=== PATIENT | female | born 1950 ===

== ENCOUNTER 2016-07-20 10:05 | Emergency (ER) | payer MEDICARE, MEDICAID ==
[2016-07-20 10:22] VITALS: BMI 21.2
--- NOTE | 2016-07-20 12:03 | C.PDOC ---
History Of Present Illness 66 y/o female presents to ED with complaints of back pain with radiation to abdomen and legs bilaterally. Pain is worse with movement. As per daughter patient fell 2 years and assisted physical therapy but no relief. No other complaints at this time. Time Seen by Provider: 07/20/16 11:17 Chief Complaint (Nursing): Abdominal Pain History Per: Patient, Family (Daughter) Onset/Duration Of Symptoms: Days Current Symptoms Are (Timing): Still Present Quality Of Discomfort: Sharp Associated Symptoms: Back Pain. denies: Fever, Nausea, Vomiting, Diarrhea, Urinary Symptoms Past Medical History Reviewed: Historical Data, Nursing Documentation, Vital Signs Vital Signs: Last Vital Signs Temp 98.5 F 07/20/16 13:59 Pulse 68 07/20/16 13:59 Resp 19 07/20/16 13:59 BP 158/74 H 07/20/16 13:59 Pulse Ox 100 07/20/16 14:14 - Medical History PMH: Anxiety, Arthritis, Asthma, HTN, Hypercholesterolemia Family History: States: Unknown Family Hx - Social History Hx Tobacco Use: No Hx Alcohol Use: No Hx Substance Use: No - Immunization History Hx Tetanus Toxoid Vaccination: No Hx Influenza Vaccination: No Hx Pneumococcal Vaccination: No Review Of Systems Except As Marked, All Systems Reviewed And Found Negative. Constitutional: Negative for: Fever, Chills Cardiovascular: Negative for: Chest Pain Gastrointestinal: Positive for: Abdominal Pain. Negative for: Nausea, Vomiting , Diarrhea Genitourinary: Negative for: Dysuria Musculoskeletal: Positive for: Back Pain Neurological: Negative for: Weakness, Numbness Physical Exam - Physical Exam Appears: Non-toxic, No Acute Distress Skin: Normal Color, Warm, No Rash Head: Atraumatic, Normacephalic Eye(s): bilateral: Normal Inspection Oral Mucosa: Moist Neck: Normal ROM, Supple Chest: Symmetrical, No Tenderness Cardiovascular: Rhythm Regular, No Friction Rub, No Murmur Respiratory: No Rales, No Rhonchi, No Wheezing Gastrointestinal/Abdominal: No Bowel Sounds, Soft, No Tenderness, No Guarding, No Rebound Back: No CVA Tenderness, Other (Diffuse paralumbar Tenderness) Extremity: Normal ROM, No Swelling Neurological/Psych: Oriented x3, Normal Speech, Normal Cognition, Normal Sensation Gait: Steady ED Course And Treatment - Laboratory Results Result Diagrams: 07/20/16 13:11 07/20/16 13:11 O2 Sat by Pulse Oximetry: 100 (RA) Pulse Ox Interpretation: Normal Disposition - Disposition Referrals: [facility] at [facility] [Outside] Bipin Hameed MD [Non-Staff] - Escobar Serrano MD [Staff Provider] - Disposition: HOME/ ROUTINE Disposition Time: 14:12 Condition: GOOD Additional Instructions: Follow up with the medical doctor within 1-2 days without fail. Return if worsened. Prescriptions: diaZEpam [Valium] 5 mg PO TID #21 tab Naproxen [Naprosyn] 500 mg PO BID #20 tab predniSONE [Prednisone] 20 mg PO BID #10 tab Instructions: Lumbar Radiculopathy (ED) - Clinical Impression Clinical Impression: Lumbar radiculopathy - PA / [employer] CROSSCUTTER / Resident Statement MD/DO has reviewed & agrees with the documentation as recorded. - Scribe Statement The provider has reviewed the documentation as recorded by the Scribe Colby Guillermo
[2016-07-20] MEDS ORDERED: Dexamethasone 4 mg/1 ml IVP STA (12:07)
--- NOTE | 2016-07-20 12:08 | C.PDOC ---
Time Seen by Provider: 07/20/16 11:17 Chief Complaint (Nursing): Abdominal Pain Past Medical History Vital Signs: Last Vital Signs Temp 98.0 F 07/20/16 10:23 Pulse 70 07/20/16 10:23 Resp 17 07/20/16 10:23 BP 178/87 H 07/20/16 10:23 Pulse Ox 100 07/20/16 10:23 - Medical History PMH: Anxiety, Arthritis, Asthma, HTN, Hypercholesterolemia Family History: States: Unknown Family Hx - Social History Hx Tobacco Use: No Hx Alcohol Use: No Hx Substance Use: No - Immunization History Hx Tetanus Toxoid Vaccination: No Hx Influenza Vaccination: No Hx Pneumococcal Vaccination: No ED Course And Treatment O2 Sat by Pulse Oximetry: 100
[2016-07-20] MEDS ORDERED: Dexamethasone 4 mg/1 ml ONE (12:57)
[2016-07-20 13:15] LABS: HEMATOCRIT 38.2 % (34.0-47.0); LYMPH # 1.2 K/uL (1.0-4.3); LYMPH % 24.3 % (20.0-40.0); MEAN CORPUSCULAR HEMOGLOBIN 31.3 pg (27.0-31.0); MEAN PLATELET VOLUME 8.9 fL (7.2-11.7); MONO # 0.4 K/uL (0.0-0.8); MONO % 7.9 % (0.0-10.0); NRBC % 0.1 % (0.0-2.0); RED CELL DISTRIBUTION WIDTH 14.1 % (11.5-14.5)
[2016-07-20 13:18] LABS: MEAN CELL VOLUME 94.8 fL (81.0-99.0)
[2016-07-20 13:25] LABS: CHLORIDE 104 mmol/L (98-107); SODIUM 139 mmol/L (132-148)
[2016-07-20 13:26] LABS: POTASSIUM 3.6 mmol/L (3.6-5.2)
[2016-07-20 13:28] LABS: ALB/GLOB RATIO 1.4 (1.0-2.1); ALKALINE PHOSPHATASE 55 U/L (38-126); ALT/SGPT 21 U/L (9-52); AST/SGOT 24 U/L (14-36); BILIRUBIN,TOTAL 0.7 mg/dL (0.2-1.3); BLOOD UREA NITROGEN 14 mg/dL (7-17); CALCIUM 9.6 mg/dl (8.6-10.4); CARBON DIOXIDE 25 mmol/L (22-30); GFR AFRICAN-AMERICAN > 60; GLUCOSE,RANDOM 90 mg/dL (65-105); TOTAL PROTEIN 7.6 g/dL (6.3-8.3)
[2016-07-20 13:31] LABS: RBC URINE 5 /hpf (0-3); URINE BILIRUBIN NEGATIVE (NEGATIVE); URINE BLOOD 2+ (NEGATIVE); URINE COLOR Yellow (YELLOW); URINE GLUCOSE (UA) NORMAL (Normal); URINE KETONE NEGATIVE (NEGATIVE); URINE LEUKOCYTE ESTERASE NEG Leu/uL (Negative); URINE PROTEIN NEGATIVE (NEGATIVE); URINE UROBILINOGEN NORMAL mg/dL (0.2-1.0); WBC URINE 1 /hpf (0-5)
--- NOTE | 2016-07-20 13:44 | CT ---
PROCEDURE: CT Abdomen and Pelvis without Oral or IV contrast. HISTORY: flank pain radiate to lower abd COMPARISON: CT abdomen and pelvis without contrast performed 10/24/15 TECHNIQUE: Contiguous axial images of the abdomen and pelvis. No oral or IV contrast administered. Coronal and Sagittal reformats generated and reviewed. Radiation dose: Total exam DLP = 303.36 mGy-cm. This CT exam was performed using one or more of the following dose reduction techniques: Automated exposure control, adjustment of the mA and/or kV according to patient size, and/or use of iterative reconstruction technique. FINDINGS: There is limited evaluation of the solid organs without the administration of IV contrast. LOWER THORAX: No pleural effusion or pneumothorax. Partially imaged large nodular density containing calcification, left lower lobe. LIVER: Unremarkable unenhanced appearance. GALLBLADDER AND BILE DUCTS: Unremarkable unenhanced appearance. PANCREAS: Unremarkable unenhanced appearance. SPLEEN: Unremarkable unenhanced appearance. ADRENALS: Unremarkable unenhanced appearance. KIDNEYS AND URETERS: No hydronephrosis or obstructing renal calculus. BLADDER: The urinary bladder appears unremarkable. REPRODUCTIVE: The uterus is absent consistent with hysterectomy. APPENDIX: The appendix appears within normal limits of caliber. No secondary signs of acute appendicitis. BOWEL: The stomach is nondistended. Lack of oral contrast limits evaluation for bowel pathology. The bowel loops appear within normal limits of caliber without evidence of intestinal obstruction. Moderate constipation. PERITONEUM: No significant free fluid. No definite free air. LYMPH NODES: No bulky lymphadenopathy identified. Suboptimal evaluation for adenopathy in the absence of oral and IV contrast. VASCULATURE: Sclerotic calcifications. No aortic aneurysm. BONES: Osseous demineralization. Degenerative changes. Scoliosis. OTHER FINDINGS: Stable pelvic calcification, right pelvis (series 3, image 113) IMPRESSION: Limited study. Moderate constipation. Partially imaged large nodular density containing calcification, left lower lobe. Additional findings as above.
[2016-07-20 13:59] VITALS: BP 158/74; PULSE 68; RESP 19; TEMP 98.5
[2016-07-20 14:14] VITALS: O2SAT 100
== END 2016-07-20 14:33 | disposition home or self-care (01) ==
LOC: C.ER 10:05
DX: M54.16 Radiculopathy, lumbar region (principal)
CPT/HCPCS: 74176; 80053; 81001; 83690; 85025; 87086; 96374; 96375; 99285; J1100; J1885; J2270

== ENCOUNTER 2016-10-14 10:23 | Emergency (ER) | payer MEDICARE, MEDICAID ==
[2016-10-14 10:23] VITALS: BMI 21.2
[2016-10-14 10:35] VITALS: RESP 16; TEMP 98.9; O2SAT 97
--- NOTE | 2016-10-14 11:59 | C.PDOC ---
History Of Present Illness 66 year old female presents to the ED with complaints of right foot pain for three weeks. Patient states a piece of wood fell onto her foot and it became bruised and painful. Patient has been ambulatory on foot. She denies fever, bleeding, discharge, sensory changes. Time Seen by Provider: 10/14/16 10:38 Chief Complaint (Nursing): Lower Extremity Problem/Injury History Per: Patient History/Exam Limitations: no limitations Onset/Duration Of Symptoms: Persistent (3 weeks ) Current Symptoms Are (Timing): Still Present Severity: Mild Recent travel outside of the [place]: No - Ankle/Foot Description Of Injury: Struck With Object (piece of wood ) Past Medical History Reviewed: Historical Data, Nursing Documentation, Vital Signs Vital Signs: Last Vital Signs Temp 98.9 F 10/14/16 10:32 Pulse 86 10/14/16 12:04 Resp 16 10/14/16 12:04 BP 169/78 H 10/14/16 12:04 Pulse Ox 97 10/14/16 15:27 - Medical History PMH: Anxiety, Arthritis, Asthma, HTN, Hypercholesterolemia Family History: States: No Known Family Hx - Social History Hx Tobacco Use: No Hx Alcohol Use: No Hx Substance Use: No - Immunization History Hx Tetanus Toxoid Vaccination: No Hx Influenza Vaccination: No Hx Pneumococcal Vaccination: No Review Of Systems Except As Marked, All Systems Reviewed And Found Negative. Constitutional: Negative for: Fever Cardiovascular: Negative for: Chest Pain Respiratory: Negative for: Cough, Shortness of Breath Gastrointestinal: Negative for: Nausea, Vomiting Musculoskeletal: Positive for: Foot Pain (right foot pain ) Skin: Negative for: Rash Neurological: Negative for: Weakness, Numbness Physical Exam - Physical Exam Appears: Well, Non-toxic, In Acute Distress ( in mild pain ) Skin: Warm, Dry Head: Atraumatic, Normacephalic Eye(s): bilateral: Normal Inspection Oral Mucosa: Moist Chest: Deformity Cardiovascular: Rhythm Regular Respiratory: Normal Breath Sounds, No Rales, No Rhonchi, No Wheezing Extremity: Normal ROM (full ROM of digits and and ankles ), No Calf Tenderness, Capillary Refill (< two seconds ), No Deformity, Other (Ecchymosis of the dorsum of the right foot. Small 0.5 cm healing laceration at the top/center of the right foot dorsum, (+) mild swelling, mild TTP, mild ecchymosis) Pulses: Left Dorsalis Pedis: Normal, Right Dorsalis Pedis: Normal Neurological/Psych: Oriented x3, Normal Motor, Normal Sensation Gait: Steady ED Course And Treatment O2 Sat by Pulse Oximetry: 97 (room air ) Pulse Ox Interpretation: Normal - Other Rad Right Foot X-Ray X-Ray: Viewed By Me, Read By Radiologist Interpretation: COMPARISON: None. FINDINGS: BONES: No definite fracture is appreciated. Note, prominent osteopenia is appreciate suggesting probable advanced osteoporosis. Clinically correlate. This complicates the identification of potential nondisplaced fractures. No suspicious lytic or blastic changes seen focally nevertheless. Degenerate changes seen throughout the interphalangeal joints comprised primarily of articular cortical sclerosis and joint space narrowing with similar changes present at the 1st metatarsophalangeal joint primarily and less apparent at the remaining metatarsal phalangeal articulations. Similar degenerate changes are present at the midfoot and hindfoot joints. Vascular calcifications are identified the plantar and posterior foot/ ankle soft tissues. JOINTS: As above. SOFT TISSUES: As above. OTHER FINDINGS: None. IMPRESSION: Diffuse osteopenia suggests osteoporosis with no definite fracture appreciable. No suspicious lytic or blastic change. Please see discussion above. Multifocal mild-to- moderate degenerative osteoarthritis is appreciated throughout the right foot as per above. Progress Note: Patient given PO tylenol. Xray of right foot ordered and reviewed. Reevaluation Time: 12:10 Reassessment Condition: Improved (Patient reassessed, pain has improved and she is able to ambulate normally in ED. Xray (-) for fracture/dislocation, and there is no evidence on physical exam of cellulitis/infection. Rx given for Naprosynm, and patient instructed to follow up with ortho/podiatry within 1 week. Patient placed in ortho shoe by Ed staff.) Disposition Counseled Patient/Family Regarding: Diagnosis, Need For Followup, Rx Given - Disposition Referrals: Podiatry Clinic [Outside] [facility] at [facility] [Outside] Disposition: HOME/ ROUTINE Disposition Time: 12:10 Condition: STABLE Additional Instructions: EGUIMIENTO CON ORTOPEDIA O PODIATRIA DENTRO DE 1 SEMANA USE LOS MEDICAMENTOS QUE NIR NECESARIOS DEVUELVA A LA ESPINOZA DE EMERGENCIA SI LOS SNTOMAS EMPEORARAN Prescriptions: Naproxen [Naprosyn] 1 tab PO BID PRN #25 tab PRN Reason: Pain Instructions: Foot Sprain (ED) Forms: [employer] (Lithuanian) Print Language: ITALIAN - POA Present On Arrival: Falls Or Trauma - Clinical Impression Clinical Impression: Sprain of foot, right, Ecchymosis, Hematoma - Scribe Statement The provider has reviewed the documentation as recorded by the Scribe Sary Mascorro All medical record entries made by the Scribe were at my direction and personally dictated by me. I have reviewed the chart and agree that the record accurately reflects my personal performance of the history, physical exam, medical decision making, and the department course for this patient. I have also personally directed, reviewed, and agree with the discharge instructions and disposition.
[2016-10-14 12:04] VITALS: BP 169/78; PULSE 86
--- NOTE | 2016-10-14 15:07 | RAD ---
PROCEDURE: Right Foot Radiographs. HISTORY: right foot injury r/o fx COMPARISON: None. FINDINGS: BONES: No definite fracture is appreciated. Note, prominent osteopenia is appreciate suggesting probable advanced osteoporosis. Clinically correlate. This complicates the identification of potential nondisplaced fractures. No suspicious lytic or blastic changes seen focally nevertheless. Degenerate changes seen throughout the interphalangeal joints comprised primarily of articular cortical sclerosis and joint space narrowing with similar changes present at the 1st metatarsophalangeal joint primarily and less apparent at the remaining metatarsal phalangeal articulations. Similar degenerate changes are present at the midfoot and hindfoot joints. Vascular calcifications are identified the plantar and posterior foot/ ankle soft tissues. JOINTS: As above. SOFT TISSUES: As above. OTHER FINDINGS: None. IMPRESSION: Diffuse osteopenia suggests osteoporosis with no definite fracture appreciable. No suspicious lytic or blastic change. Please see discussion above. Multifocal zeib-vs-epypodkw degenerative osteoarthritis is appreciated throughout the right foot as per above.
== END 2016-10-14 12:17 | disposition home or self-care (01) ==
LOC: C.ER 10:23
DX: S93.601A Unspecified sprain of right foot, initial encounter (principal); S90.31XA Contusion of right foot, initial encounter; W22.8XXA Striking against or struck by other objects, initial encounter

== ENCOUNTER 2017-01-10 10:21 | Inpatient (IN) | payer MEDICARE, MEDICAID ==
[2017-01-10 10:39] VITALS: BMI 20.5
[2017-01-10] MEDS ORDERED: Aspirin 325 mg EC Tablets PO STA (11:01)
[2017-01-10] MEDS ORDERED: Lactated Ringer's 1,000 ML IV ONE (11:02)
--- NOTE | 2017-01-10 11:07 | C.PDOC ---
History Of Present Illness <EltonJessica Uzma - Last Filed: 01/10/17 18:33> <Grisel Álvarez - Last Filed: 01/10/17 18:37> 66 y/o female with PMHx of Arthritis, HTN and anxiety presents to ED with complaints of throat pain radiating to chest since yesterday. Patient also complains of bilateral ear pain and reports headache, dizziness, and nausea with associated 2 episodes of vomiting yesterday. Patient denies fever, chills, abdominal pain, sob, cough or any other complaints at this time. PMD ( Jessica Conde) History Per: Patient History/Exam Limitations: no limitations Onset/Duration Of Symptoms: Days Current Symptoms Are (Timing): Still Present Quality: Tightness Associated Symptoms: Nausea <EltonJessica L - Last Filed: 01/10/17 18:33> <Grisel Álvarez Mikala - Last Filed: 01/10/17 18:37> Time Seen by Provider: 01/10/17 10:51 Chief Complaint (Nursing): Chest Pain Past Medical History Reviewed: Historical Data, Nursing Documentation, Vital Signs - Medical History PMH: Anxiety, Arthritis, Asthma, HTN, Hypercholesterolemia Surgical History: No Surg Hx Family History: States: No Known Family Hx - Social History Hx Tobacco Use: No Hx Alcohol Use: No Hx Substance Use: No - Immunization History Hx Tetanus Toxoid Vaccination: No Hx Influenza Vaccination: No Hx Pneumococcal Vaccination: No <CondeJessica - Last Filed: 01/10/17 18:33> Vital Signs: Last Vital Signs Temp 97.7 F 01/10/17 15:37 Pulse 67 01/10/17 16:00 Resp 20 01/10/17 15:37 BP 152/71 H 01/10/17 15:37 Pulse Ox 98 01/10/17 18:35 Review Of Systems Constitutional: Negative for: Fever, Chills ENT: Positive for: Ear Pain, Throat Pain Cardiovascular: Positive for: Chest Pain Gastrointestinal: Positive for: Nausea, Vomiting. Negative for: Abdominal Pain Musculoskeletal: Negative for: Back Pain Skin: Negative for: Rash Neurological: Positive for: Headache, Dizziness <EltonJessica L - Last Filed: 01/10/17 18:33> Physical Exam - Physical Exam Appears: Non-toxic, No Acute Distress Skin: Warm, Dry, No Rash Head: Atraumatic, Normacephalic Eye(s): bilateral: Normal Inspection, EOMI Ear(s): Bilateral: Normal Oral Mucosa: Moist Throat: Normal, No Erythema, No Exudate Neck: Normal ROM, Supple Chest: Symmetrical Cardiovascular: Rhythm Regular Respiratory: Normal Breath Sounds, No Rales, No Rhonchi, No Wheezing Gastrointestinal/Abdominal: Soft, No Tenderness, No Guarding, No Rebound Extremity: Normal ROM, No Pedal Edema, No Calf Tenderness, Capillary Refill (<2 seconds), No Swelling Neurological/Psych: Oriented x3, Normal Speech <Jessica Conde - Last Filed: 01/10/17 18:33> ED Course And Treatment - Laboratory Results Result Diagrams: 01/10/17 11:10 01/10/17 11:10 Lab Interpretation: Abnormal O2 Sat by Pulse Oximetry: 98 (RA) Pulse Ox Interpretation: Normal - Radiology CXR: Interpreted by Me, Viewed By Me CXR Interpretation: Yes: No Acute Disease, Heart Size (normal). No: Infiltrates , COPD <Jessica Conde - Last Filed: 01/10/17 18:33> - Laboratory Results Result Diagrams: 01/10/17 11:10 01/10/17 11:10 <Grisel Álvarez - Last Filed: 01/10/17 18:37> Medical Decision Making <Jessica Conde - Last Filed: 01/10/17 18:33> <Grisel Álvarez - Last Filed: 01/10/17 18:37> Medical Decision Making: Impression: URI symptoms Plan: Aspirin, Reglan, UA, CXR, Blood work, ECG Progress: Labs reviewed. Troponin is elevated 0.14. Case discussed with attending Dr Álvarez. Patient appears well, nontoxic and in no distress. no current chest rosalina. 1223 Dr Raman spoke with Dr Hatch who admits patients to hospital for Dr Lang. He wants patient to get Heparin and to consult Dr Jones for cardiology. He wants patient admitted to [facility], and he will speak to him. (Jessica Conde) Seen by resident and then evaluated by me. Patient presented with chest pain yesterday that has resolved. Resting comfortably on my arrival. Afebrile. EKG at 10:27 showed NSR at 81bpm with normal intervals and no ST changes. Trop mildly elevated. Repeat ekg shows NSR at 68bpm with normal intervals and no ST changes. Pericarditis considered in my differential but ekg shows no diffuse ST elevation. Myocarditis considered but afebrile and no uri complaints. Spoke to Dr. Hatch who admits for Dr. Lang. Requesting admission under Dr. Franco, with cardiology consult and heparin. (Grisel Álvarez) Disposition - Disposition Disposition Time: 12:20 - POA Present On Arrival: None <Jessica Conde - Last Filed: 01/10/17 18:33> <Grisel Álvarez - Last Filed: 01/10/17 18:37> - Disposition Disposition: HOSPITALIZED Condition: FAIR - Clinical Impression Clinical Impression: Chest pain, NSTEMI (non-ST elevated myocardial infarction) - PA / HOUSING COUNSELOR / Resident Statement MD/DO has reviewed & agrees with the documentation as recorded. - Scribe Statement The provider has reviewed the documentation as recorded by the Scribe <Jessica Conde - Last Filed: 01/10/17 18:33> <Grisel Álvarez - Last Filed: 01/10/17 18:37> - Scribe Statement Colby Guillermo All medical record entries made by the Scribe were at my direction and personally dictated by me. I have reviewed the chart and agree that the record accurately reflects my personal performance of the history, physical exam, medical decision making, and the department course for this patient. I have also personally directed, reviewed, and agree with the discharge instructions and disposition. (Jessica Conde) Decision To Admit - Pt Status Changed To: Hospital Disposition Of: Inpatient - Admit Certification Admit to Inpatient:: After my assessment, the patient will require hospitalization for at least two midnights. This is because of the severity of symptoms shown, intensity of services needed, and/or the medical risk in this patient being treated as an outpatient. - InPatient: Physician Admission Certification: I certify that this patient requires 2 or more midnights of care for the following reason:: Patient with acute chest pain and NSTEMI for admission, cardio consult - . Bed Request Type: Telemetry Admitting Physician: Sukhjinder Franco <Jessica Conde - Last Filed: 01/10/17 18:33> <Grisel Álvarez - Last Filed: 01/10/17 18:37> - . Patient Diagnosis: Chest pain, NSTEMI (non-ST elevated myocardial infarction)
[2017-01-10 11:17] LABS: BASO % 0.6 % (0.0-2.0); EOS % 0.6 % (0.0-4.0); HEMATOCRIT 39.7 % (34.0-47.0); LYMPH # 0.6 K/uL (1.0-4.3); LYMPH % 11.4 % (20.0-40.0); MEAN CORPUSCULAR HEMOGLOBIN 32.5 pg (27.0-31.0); MEAN CORPUSCULAR HGB CONC 33.5 g/dL (33.0-37.0); MONO # 0.4 K/uL (0.0-0.8); RED CELL DISTRIBUTION WIDTH 14.8 % (11.5-14.5); WHITE BLOOD COUNT 5.3 K/uL (4.8-10.8)
[2017-01-10] MEDS ORDERED: Aspirin 325 mg EC Tablets PO ONE (11:18)
[2017-01-10] MEDS ORDERED: Lactated Ringer's 1,000 ML ONE (11:18)
[2017-01-10 11:20] LABS: MEAN CELL VOLUME 97.2 fL (81.0-99.0)
[2017-01-10 11:30] LABS: ALB/GLOB RATIO 1.5 (1.0-2.1); ALKALINE PHOSPHATASE 54 U/L (38-126); ALT/SGPT 43 U/L (9-52); AST/SGOT 34 U/L (14-36); BILIRUBIN,TOTAL 0.8 mg/dL (0.2-1.3); BLOOD UREA NITROGEN 19 mg/dL (7-17); CALCIUM 8.7 mg/dl (8.6-10.4); CARBON DIOXIDE 28 mmol/L (22-30); CHLORIDE 100 mmol/L (98-107); CHOLESTEROL 174 mg/dL (0-199); GFR AFRICAN-AMERICAN > 60; GLUCOSE,RANDOM 122 mg/dL (65-105); POTASSIUM 3.2 mmol/L (3.6-5.2); SODIUM 137 mmol/L (132-148); TOTAL PROTEIN 6.7 g/dL (6.3-8.3)
[2017-01-10 11:42] LABS: RBC URINE 36 /hpf (0-3); URINE BACTERIA RARE (<OCC); URINE BILIRUBIN NEGATIVE (NEGATIVE); URINE BLOOD 2+ (NEGATIVE); URINE COLOR Yellow (YELLOW); URINE GLUCOSE (UA) NORMAL (Normal); URINE HYALINE CAST >20 /lpf (0-2); URINE KETONE NEGATIVE (NEGATIVE); URINE LEUKOCYTE ESTERASE 2+ Leu/uL (Negative); URINE PROTEIN NEGATIVE (NEGATIVE); WBC URINE 11 /hpf (0-5)
[2017-01-10] MEDS ORDERED: Potassium Chloride 20 mEq ER Tab PO STA (12:11)
[2017-01-10] MEDS ORDERED: Heparin25000 units/250ml 1/2NS 25,000 UNITS/250 ML BAG IV ONE (12:25)
[2017-01-10] MEDS ORDERED: Potassium Chloride 20 mEq ER Tab PO ONE ×2 (12:51→22:00)
--- NOTE | 2017-01-10 12:59 | RAD ---
HISTORY: chest pain COMPARISON: 07/29/2015 TECHNIQUE: Chest PA and lateral FINDINGS: LUNGS: No active pulmonary disease. PLEURA: No significant pleural effusion identified. No pneumothorax apparent. CARDIOVASCULAR: Mild cardiomegaly OSSEOUS STRUCTURES: No significant abnormalities. VISUALIZED UPPER ABDOMEN: Normal. OTHER FINDINGS: None. IMPRESSION: No active disease.
[2017-01-10 15:44] VITALS: RESP 20
--- NOTE | 2017-01-10 23:29 | CP.PCM.HP ---
History of Present Illness - History of Present Illness History of Present Illness: CC: cgest pain HPI: 66 y/o female with PMHx of Arthritis, HTN and anxiety presents to ED with complaints of throat pain radiating to chest since yesterday. Patient also complains of bilateral ear pain and reports headache, dizziness, and nausea with associated 2 episodes of vomiting yesterday. Patient denies fever, chills, abdominal pain, sob, cough or any other complaints at this time. Past Patient History - Infectious Disease Hx of Infectious Diseases: None - Past Medical History & Family History Past Medical History?: Yes - Past Social History Smoking Status: Former Smoker - CARDIAC Hx Hypercholesterolemia: Yes Hx Hypertension: Yes - PULMONARY Hx Asthma: Yes - NEUROLOGICAL Hx Neurological Disorder: No - HEENT Hx HEENT Problems: No - RENAL Hx Chronic Kidney Disease: No - ENDOCRINE/METABOLIC Hx Endocrine Disorders: No - HEMATOLOGICAL/ONCOLOGICAL Hx Blood Disorders: No - INTEGUMENTARY Hx Dermatological Problems: No - MUSCULOSKELETAL/RHEUMATOLOGICAL Hx Arthritis: Yes - GASTROINTESTINAL Hx Gastrointestinal Disorders: No - GENITOURINARY/GYNECOLOGICAL Hx Genitourinary Disorders: No - PSYCHIATRIC Hx Anxiety: Yes Hx Substance Use: No - SURGICAL HISTORY Hx Surgeries: Yes Hx Hysterectomy: Yes Other/Comment: nose - ANESTHESIA Hx Anesthesia: Yes Hx Anesthesia Reactions: No Hx Malignant Hyperthermia: No Meds Allergies/Adverse Reactions: Allergies Allergy/AdvReac Type Severity Reaction Status Date / Time Iodinated Contrast- Oral and Allergy Severe OTHER Verified 10/14/16 10:55 IV Dye [Iodinated Contrast Media - IV Dye] Results - Vital Signs Recent Vital Signs: Last Vital Signs Temp 97.7 F 01/10/17 15:37 Pulse 67 01/10/17 16:00 Resp 20 01/10/17 15:37 BP 152/71 H 01/10/17 15:37 Pulse Ox 98 01/10/17 18:35 - Labs Result Diagrams: 01/10/17 11:10 01/10/17 11:10 Labs: Laboratory Results - last 24 hr 01/10/17 01/10/17 01/10/17 11:10 11:10 11:10 WBC 5.3 RBC 4.09 Hgb 13.3 Hct 39.7 MCV 97.2 D MCH 32.5 H MCHC 33.5 RDW 14.8 H Plt Count 167 MPV 9.0 Neut % (Auto) 79.4 H Lymph % (Auto) 11.4 L [place] % (Auto) 8.0 Eos % (Auto) 0.6 Baso % (Auto) 0.6 Neut # 4.2 Lymph # 0.6 L [place] # 0.4 Eos # 0.0 Baso # 0.0 PT 11.4 INR 1.0 APTT 29 Sodium 137 Potassium 3.2 L Chloride 100 Carbon Dioxide 28 Anion Gap 12 BUN 19 H Creatinine 0.8 Est GFR ( Amer) > 60 Est GFR (Non-Af Amer) > 60 Random Glucose 122 H Calcium 8.7 Total Bilirubin 0.8 AST 34 ALT 43 Alkaline Phosphatase 54 CK-MB (Mass) 2.67 Troponin I 0.1410 H* NT-Pro-B Natriuret Pep 2240 H Total Protein 6.7 Albumin 4.1 Globulin 2.6 Albumin/Globulin Ratio 1.5 Triglycerides 53 Cholesterol 174 LDL Cholesterol Direct 105 HDL Cholesterol 59 Urine Color Urine Clarity Urine pH Ur Specific [place] Urine Protein Urine Glucose (UA) Urine Ketones Urine Blood Urine Nitrate Urine Bilirubin Urine Urobilinogen Ur Leukocyte Esterase Urine WBC (Auto) Urine RBC (Auto) Ur Squamous Epith Cells Urine Bacteria Hyaline Casts 01/10/17 01/10/17 01/10/17 11:28 20:11 21:23 WBC RBC Hgb Hct MCV MCH MCHC RDW Plt Count MPV Neut % (Auto) Lymph % (Auto) [place] % (Auto) Eos % (Auto) Baso % (Auto) Neut # Lymph # [place] # Eos # Baso # PT INR APTT 62 H D Sodium Potassium Chloride Carbon Dioxide Anion Gap BUN Creatinine Est GFR ( Amer) Est GFR (Non-Af Amer) Random Glucose Calcium Total Bilirubin AST ALT Alkaline Phosphatase CK-MB (Mass) Troponin I 0.1950 H* NT-Pro-B Natriuret Pep Total Protein Albumin Globulin Albumin/Globulin Ratio Triglycerides Cholesterol LDL Cholesterol Direct HDL Cholesterol Urine Color Yellow Urine Clarity Hazy Urine pH 5.0 Ur Specific [place] 1.016 Urine Protein Negative Urine Glucose (UA) Normal Urine Ketones Negative Urine Blood 2+ H Urine Nitrate Negative Urine Bilirubin Negative Urine Urobilinogen 2.0 H Ur Leukocyte Esterase 2+ H Urine WBC (Auto) 11 H Urine RBC (Auto) 36 H Ur Squamous Epith Cells 3 Urine Bacteria Rare Hyaline Casts >20 H
[2017-01-11] MEDS ORDERED: Potassium Chloride 20 mEq ER Tab PO ONE ×3 (02:00→21:46)
[2017-01-11 03:52] LABS: BASO % 1.1 % (0.0-2.0); EOS # 0.1 K/uL (0.0-0.7); EOS % 2.8 % (0.0-4.0); LYMPH # 1.4 K/uL (1.0-4.3); LYMPH % 33.3 % (20.0-40.0); MEAN CELL VOLUME 97.4 fL (81.0-99.0); MEAN CORPUSCULAR HEMOGLOBIN 32.2 pg (27.0-31.0); MEAN CORPUSCULAR HGB CONC 33.1 g/dL (33.0-37.0); MEAN PLATELET VOLUME 8.9 fL (7.2-11.7); MONO # 0.4 K/uL (0.0-0.8); MONO % 9.3 % (0.0-10.0); NRBC % 0.1 % (0.0-2.0); RED CELL DISTRIBUTION WIDTH 14.5 % (11.5-14.5); WHITE BLOOD COUNT 4.2 K/uL (4.8-10.8)
[2017-01-11 03:56] LABS: INR 1.1
[2017-01-11 04:07] LABS: BLOOD UREA NITROGEN 13 mg/dL (7-17); CALCIUM 8.7 mg/dl (8.6-10.4); CARBON DIOXIDE 25 mmol/L (22-30); CHLORIDE 105 mmol/L (98-107); GFR AFRICAN-AMERICAN > 60; GLUCOSE,RANDOM 84 mg/dL (65-105); POTASSIUM 4.3 mmol/L (3.6-5.2); SODIUM 138 mmol/L (132-148)
[2017-01-11] MEDS ORDERED: Midazolam 2 MG/2 ML VIAL ONE (10:53)
[2017-01-11] MEDS ORDERED: Sodium Chloride 0.9% 1,000 ML IV SCH ×2 (12:15)
--- NOTE | 2017-01-11 12:16 | CP.PCM.PN ---
Subjective - Date & Time of Evaluation Date of Evaluation: 01/11/17 Time of Evaluation: 12:16 - Subjective Subjective: Patient s/p cath Normal coronaries and Normal EF Medical management Objective - Vital Signs/Intake and Output Vital Signs (last 24 hours): Temp Pulse Resp BP Pulse Ox 98.0 F 66 20 146/69 98 01/11/17 08:36 01/11/17 08:36 01/11/17 08:36 01/11/17 08:36 01/11/17 08:36 Intake and Output: 01/11/17 01/11/17 06:59 18:59 Intake Total 292 Balance 292 - Medications Medications: Current Medications Acetaminophen (Tylenol 325mg Tab) 650 mg PO Q6 PRN PRN Reason: Pain, moderate (4-7) Alprazolam (Xanax) 0.25 mg PO HS [facility] Stop: 01/17/17 22:01 Last Admin: 01/10/17 22:18 Dose: Not Given Enoxaparin Sodium (Lovenox) 30 mg SC DAILY [facility] Famotidine (Pepcid) 20 mg PO BID [facility] Sodium Chloride (Sodium Chloride 0.9%) 1,000 mls @ 80 mls/hr IV .[id number] [facility] Stop: 01/12/17 00:16 Losartan Potassium (Cozaar) 25 mg PO DAILY [facility] Last Admin: 01/11/17 09:10 Dose: 25 mg Pneumococcal Polyvalent Vaccine (Pneumovax 23 Vaccine) 0.5 ml IM .ONCE ONE Stop: 01/12/17 10:01 Rosuvastatin Calcium (Crestor) 5 mg PO HS [place] Zolpidem Tartrate (Ambien) 10 mg PO HS PRN PRN Reason: Insomnia Last Admin: 01/10/17 22:06 Dose: 10 mg - Labs Labs: 01/11/17 03:47 01/11/17 03:47 PT 12.0 SECONDS (9.7-12.2) 01/11/17 03:47 INR 1.1 01/11/17 03:47 APTT 31 SECONDS (21-34) D 01/11/17 04:58
--- NOTE | 2017-01-11 13:53 | CP.PCM.PN ---
Subjective - Date & Time of Evaluation Date of Evaluation: 01/11/17 Time of Evaluation: 13:52 - Subjective Subjective: PT HAD CARDIAC CATH DONE TODAY WITH DR. VILLARREAL AND NORMAL CORONARIES PER DR. VILLARREAL. PT MAY BE D/C HOME THIS EVENING AFTER [address] VILLARREAL AND SHE IS TO CONTINUE HER USUAL HOME MEDS (PROCARDIA OK PER DR. VILLARREAL). PER PHIL PT DOES NOT NEED TO BE ON ASA. SHE IS TO FOLLOW UP WITH DR. ESPINOZA AND DR. VILLARREAL IN THEIR OFFICES BETWEEN 1-2 WEEKS. NO FURTHER ORDERS. Objective - Vital Signs/Intake and Output Vital Signs (last 24 hours): Temp Pulse Resp BP Pulse Ox 98.8 F 70 20 163/73 H 99 01/11/17 12:51 01/11/17 12:51 01/11/17 12:51 01/11/17 12:51 01/11/17 12:51 Intake and Output: 01/11/17 01/11/17 06:59 18:59 Intake Total 292 Balance 292 - Medications Medications: Current Medications Acetaminophen (Tylenol 325mg Tab) 650 mg PO Q6 PRN PRN Reason: Pain, moderate (4-7) Alprazolam (Xanax) 0.25 mg PO HS [place] Stop: 01/17/17 22:01 Last Admin: 01/10/17 22:18 Dose: Not Given Enoxaparin Sodium (Lovenox) 30 mg SC DAILY [facility] Famotidine (Pepcid) 20 mg PO BID [facility] Sodium Chloride (Sodium Chloride 0.9%) 1,000 mls @ 80 mls/hr IV .[id number] [facility] Stop: 01/12/17 00:16 Last Admin: 01/11/17 12:42 Dose: Not Given Sodium Chloride (Sodium Chloride 0.9%) 1,000 mls @ 80 mls/hr IV .[id number] [facility] Last Admin: 01/11/17 12:43 Dose: 80 mls/hr Losartan Potassium (Cozaar) 25 mg PO DAILY [facility] Last Admin: 01/11/17 09:10 Dose: 25 mg Pneumococcal Polyvalent Vaccine (Pneumovax 23 Vaccine) 0.5 ml IM .ONCE ONE Stop: 01/12/17 10:01 Rosuvastatin Calcium (Crestor) 5 mg PO HS [place] Zolpidem Tartrate (Ambien) 10 mg PO HS PRN PRN Reason: Insomnia Last Admin: 01/10/17 22:06 Dose: 10 mg - Labs Labs: 01/11/17 03:47 01/11/17 03:47 PT 12.0 SECONDS (9.7-12.2) 01/11/17 03:47 INR 1.1 01/11/17 03:47 APTT 31 SECONDS (21-34) D 01/11/17 04:58
[2017-01-11 16:20] VITALS: BP 155/68; TEMP 98.1; O2SAT 98
[2017-01-11 16:48] VITALS: PULSE 73
[2017-01-11] MEDS ORDERED: Influenza Vaccine 60 mcg/0.5 mL SYR (4YR UP) IM ONE (17:00)
[2017-01-11] MEDS ORDERED: Pneumococcal 23-Valent Vaccine IM ONE (17:00)
--- NOTE | 2017-01-11 18:55 | CARD ---
APPROVED REPORT EKG Measurement Heart [id number] <Conclusion> Normal sinus rhythm Normal ECG
--- NOTE | 2017-01-11 18:55 | CARD ---
APPROVED REPORT EKG Measurement Heart [id number] [place] [id number] <Conclusion> Normal sinus rhythm Normal ECG
--- NOTE | 2017-01-11 19:41 | CARD ---
APPROVED REPORT EKG Measurement Heart [id number] [place] [id number] <Conclusion> Sinus rhythm with occasional premature ventricular complexes Otherwise normal ECG
--- NOTE | 2017-01-11 23:16 | CP.PCM.DIS ---
Provider - Provider Date of Admission: 01/10/17 12:24 Attending physician: Sukhjinder Franco MD Hospital Course - Lab Results Lab Results: Most Recent Lab Values WBC 4.2 K/uL (4.8-10.8) L 01/11/17 03:47 RBC 3.80 Mil/uL (3.80-5.20) 01/11/17 03:47 Hgb 12.2 g/dL (11.0-16.0) 01/11/17 03:47 Hct 37.0 % (34.0-47.0) 01/11/17 03:47 MCV 97.4 fL (81.0-99.0) 01/11/17 03:47 MCH 32.2 pg (27.0-31.0) H 01/11/17 03:47 MCHC 33.1 g/dL (33.0-37.0) 01/11/17 03:47 RDW 14.5 % (11.5-14.5) 01/11/17 03:47 Plt Count 155 K/uL (130-400) 01/11/17 03:47 MPV 8.9 fL (7.2-11.7) 01/11/17 03:47 Neut % (Auto) 53.5 % (50.0-75.0) 01/11/17 03:47 Lymph % (Auto) 33.3 % (20.0-40.0) 01/11/17 03:47 [place] % (Auto) 9.3 % (0.0-10.0) 01/11/17 03:47 Eos % (Auto) 2.8 % (0.0-4.0) 01/11/17 03:47 Baso % (Auto) 1.1 % (0.0-2.0) 01/11/17 03:47 Neut # 2.3 K/uL (1.8-7.0) 01/11/17 03:47 Lymph # 1.4 K/uL (1.0-4.3) 01/11/17 03:47 [place] # 0.4 K/uL (0.0-0.8) 01/11/17 03:47 Eos # 0.1 K/uL (0.0-0.7) 01/11/17 03:47 Baso # 0.0 K/uL (0.0-0.2) 01/11/17 03:47 PT 12.0 SECONDS (9.7-12.2) 01/11/17 03:47 INR 1.1 01/11/17 03:47 APTT 31 SECONDS (21-34) D 01/11/17 04:58 Sodium 138 mmol/L (132-148) 01/11/17 03:47 Potassium 4.3 mmol/L (3.6-5.2) 01/11/17 03:47 Chloride 105 mmol/L (98-107) 01/11/17 03:47 Carbon Dioxide 25 mmol/L (22-30) 01/11/17 03:47 Anion Gap 13 (10-20) 01/11/17 03:47 BUN 13 mg/dL (7-17) 01/11/17 03:47 Creatinine 0.9 mg/dL (0.7-1.2) 01/11/17 03:47 Est GFR ( Amer) > 60 01/11/17 03:47 Est GFR (Non-Af Amer) > 60 01/11/17 03:47 Random Glucose 84 mg/dL (65-105) 01/11/17 03:47 Calcium 8.7 mg/dl (8.6-10.4) 01/11/17 03:47 Total Bilirubin 0.8 mg/dL (0.2-1.3) 01/10/17 11:10 AST 34 U/L (14-36) 01/10/17 11:10 ALT 43 U/L (9-52) 01/10/17 11:10 Alkaline Phosphatase 54 U/L (38-126) 01/10/17 11:10 Total Creatine Kinase 79 U/L (30-135) 01/11/17 03:47 CK-MB (Mass) 1.91 ng/mL (0.0-3.38) 01/11/17 03:47 Troponin I 0.1560 ng/mL (0.00-0.120) H* 01/11/17 03:47 NT-Pro-B Natriuret Pep 2240 pg/mL (0-900) H 01/10/17 11:10 Total Protein 6.7 g/dL (6.3-8.3) 01/10/17 11:10 Albumin 4.1 g/dL (3.5-5.0) 01/10/17 11:10 Globulin 2.6 gm/dL (2.2-3.9) 01/10/17 11:10 Albumin/Globulin Ratio 1.5 (1.0-2.1) 01/10/17 11:10 Triglycerides 53 mg/dL (0-149) 01/10/17 11:10 Cholesterol 174 mg/dL (0-199) 01/10/17 11:10 LDL Cholesterol Direct 105 mg/dL (0-129) 01/10/17 11:10 HDL Cholesterol 59 mg/dL (30-70) 01/10/17 11:10 Urine Color Yellow (YELLOW) 01/10/17 11:28 Urine Clarity Hazy (Clear) 01/10/17 11:28 Urine pH 5.0 (5.0-8.0) 01/10/17 11:28 Ur Specific [place] 1.016 (1.003-1.030) 01/10/17 11:28 Urine Protein Negative mg/dL (NEGATIVE) 01/10/17 11:28 Urine Glucose (UA) Normal mg/dL (Normal) 01/10/17 11:28 Urine Ketones Negative mg/dL (NEGATIVE) 01/10/17 11:28 Urine Blood 2+ (NEGATIVE) H 01/10/17 11:28 Urine Nitrate Negative (NEGATIVE) 01/10/17 11:28 Urine Bilirubin Negative (NEGATIVE) 01/10/17 11:28 Urine Urobilinogen 2.0 mg/dL (0.2-1.0) H 01/10/17 11:28 Ur Leukocyte Esterase 2+ [place]/uL (Negative) H 01/10/17 11:28 Urine WBC (Auto) 11 /hpf (0-5) H 01/10/17 11:28 Urine RBC (Auto) 36 /hpf (0-3) H 01/10/17 11:28 Ur Squamous Epith Cells 3 /hpf (0-5) 01/10/17 11:28 Urine Bacteria Rare (<OCC) 01/10/17 11:28 Hyaline Casts >20 /lpf (0-2) H 01/10/17 11:28 - Hospital Course Hospital Course: PT HAD CARDIAC CATH DONE TODAY WITH DR. VILLARREAL AND NORMAL CORONARIES PER DR. VILLARREAL. PT MAY BE D/C HOME THIS EVENING AFTER [address] VILLARREAL AND SHE IS TO CONTINUE HER USUAL HOME MEDS (PROCARDIA OK PER DR. VILLARREAL). PER PHIL PT DOES NOT NEED TO BE ON ASA. SHE IS TO FOLLOW UP WITH ME AND DR. VILLARREAL IN THEIR OFFICES BETWEEN 1-2 WEEKS. NO FURTHER ORDERS. Discharge Plan - Follow Up Plan Condition: FAIR Disposition: HOME/ ROUTINE Instructions: Chest Pain (DC), Heart Healthy Diet (DC), Low Sodium Diet (DC) Additional Instructions: FOLLOW UP WITH DR. FRANCO OR YOUR PRIMARY DOCTOR IN THE OFFICE WITHIN 1 WEEK OF DISCHARGE---CALL FOR APPT TIME. FOLLOW UP WITH DR. VILLARREAL (STEEL WORKER) IN THE OFFICE WITHIN 2 WEEKS OF DISCHARGE ---CALL FOR APPT TIME. CONTINUE YOUR HOME MEDICATIONS USUAL. IF YOU HAVE ANY FURTHER CONCERNS OR QUESTIONS, FEEL FREE TO CONTACT DR. VILLARREAL OR DR. FRANCO. Referrals: Jaylan Villarreal MD [Staff Provider] - 1 Week Sukhjinder Franco MD [Staff Provider] - 1 Week
[2017-01-12] MEDS ORDERED: Pneumococcal 23-Valent Vaccine IM ONE (10:00)
[2017-01-12] MEDS ORDERED: Enoxaparin 30 mg Syringe SC SCH (10:00)
== END 2017-01-11 19:36 | disposition home or self-care (01) | DRG 282 ==
LOC: C.ER 10:21 → C.9E 12:24 → C.5S 14:49
PROVIDERS: ADMIT Internal Medicine; ATTEND Internal Medicine
DX: I21.4 Non-ST elevation (NSTEMI) myocardial infarction (principal); I10 Essential (primary) hypertension; J45.909 Unspecified asthma, uncomplicated; E78.00 Pure hypercholesterolemia, unspecified; Z87.891 Personal history of nicotine dependence

== ENCOUNTER 2017-03-08 10:03 | Emergency (ER) | payer MEDICARE, MEDICAID ==
[2017-03-08 10:15] VITALS: BMI 21.6
[2017-03-08 10:19] VITALS: RESP 18; TEMP 97.7
[2017-03-08 12:00] LABS: SQUAMOUS EPITHIAL < 1 /hpf (0-5); URINE BACTERIA RARE (<OCC); URINE BILIRUBIN NEGATIVE (NEGATIVE); URINE BLOOD 2+ (NEGATIVE); URINE CLARITY Clear (Clear); URINE COLOR Straw (YELLOW); URINE GLUCOSE (UA) NORMAL (Normal); URINE LEUKOCYTE ESTERASE NEG Leu/uL (Negative); URINE NITRATE NEGATIVE (NEGATIVE); URINE PROTEIN NEGATIVE (NEGATIVE); URINE UROBILINOGEN NORMAL mg/dL (0.2-1.0)
--- NOTE | 2017-03-08 12:48 | C.PDOC ---
History Of Present Illness 66 y/o female, with history of HTN, asthma, and anxiety, presents to the ER complaining of abdominal pain which has been present for the past 5 days. Patient reports that the pain is a 9/10 and and the pain is intermittent. Her daughter states that her mother had constipation for the past 3 days and she moved her bowels without difficulty yesterday. Her daughter also states that her patient is taking Metamucil for constipation. Patient denies that she has nausea, vomiting, diarrhea, fever, chills, chest pain, and sob. Time Seen by Provider: 03/08/17 10:38 Chief Complaint (Nursing): Abdominal Pain History Per: Patient, Family (Daughter) History/Exam Limitations: no limitations Onset/Duration Of Symptoms: Days Current Symptoms Are (Timing): Still Present Severity: Moderate Past Medical History Reviewed: Historical Data, Nursing Documentation, Vital Signs Vital Signs: Last Vital Signs Temp 97.7 F 03/08/17 13:06 Pulse 82 03/08/17 13:06 Resp 18 03/08/17 13:06 BP 176/72 H 03/08/17 13:06 Pulse Ox 99 03/08/17 13:13 - Medical History PMH: Anxiety, Arthritis, Asthma, HTN, Hypercholesterolemia Denies: Chronic Kidney Disease Surgical History: No Surg Hx - [facility] Procedures MEASURE OF CARDIAC SAMPL & PRESSURE, L HEART, PERC APPROACH (01/10/17) PLAIN RADIOGRAPHY OF SINGLE COR ART USING OTH CONTRAST (01/10/17) Family History: States: No Known Family Hx - Social History Hx Tobacco Use: No Hx Alcohol Use: No Hx Substance Use: No - Immunization History Hx Tetanus Toxoid Vaccination: No Hx Influenza Vaccination: No Hx Pneumococcal Vaccination: No Review Of Systems Except As Marked, All Systems Reviewed And Found Negative. Constitutional: Negative for: Fever, Chills Respiratory: Negative for: Cough, Shortness of Breath Gastrointestinal: Positive for: Abdominal Pain. Negative for: Nausea, Vomiting , Diarrhea Physical Exam - Physical Exam Appears: Non-toxic, No Acute Distress Skin: Normal Color, Warm Head: Atraumatic, Normacephalic Eye(s): bilateral: Normal Inspection, PERRL Nose: Normal Oral Mucosa: Moist Neck: Supple Chest: Symmetrical Cardiovascular: Rhythm Regular Respiratory: Normal Breath Sounds, No Accessory Muscle Use, No Rales, No Rhonchi , No Wheezing Gastrointestinal/Abdominal: Normal Exam, Soft, Tenderness (tenderness in left flank) Extremity: Normal ROM Neurological/Psych: Oriented x3, Normal Speech, Normal Cognition, Normal Motor, Normal Sensation ED Course And Treatment O2 Sat by Pulse Oximetry: 99 (RA) Pulse Ox Interpretation: Normal Progress Note: UA is normal and X-ray shows retained stool. Patient is feeling better. Patient has been given Metamucil for constipation and has been discharged. Medical Decision Making Medical Decision Making: Impression: Abdominal Pain Plan: --[id number] --Urinalysis Disposition Counseled Patient/Family Regarding: Studies Performed, Diagnosis, Need For Followup, Rx Given - Disposition Referrals: [facility] [Outside] Disposition: HOME/ ROUTINE Disposition Time: 12:56 Condition: STABLE Additional Instructions: Follow up with your doctor or our clinic. You have been diagnosed with constipation, you need to follow up to determine the underlying cause. Prescriptions: Docusate Sodium [Colace] 100 mg PO BID #20 capsule Phosphate Enema [Fleet Enema 135 Ml] 135 ml RC DAILY #2 nma Psyllium Husk/Aspartame [Metamucil Fiber Singles Packet] 3.4 gm PO DAILY #10 powd.pack Instructions: Constipation (ED) Forms: Gen Discharge Inst Mongolian, [employer] [facility] (Mongolian) - POA Present On Arrival: None - Clinical Impression Clinical Impression: Constipation
[2017-03-08 13:08] VITALS: BP 176/72; PULSE 82; O2SAT 99
--- NOTE | 2017-03-08 13:14 | RAD ---
HISTORY: abdominal pain COMPARISON: No prior. FINDINGS: BOWEL: Minimal stool retention. No obstruction. No free air. BONES: Scoliosis, disc space narrowing and marginal osteophyte from L2 caudal. Transitional elements -inferred -T12 considered with rudimentary ribs Bilateral hip arthrosis OTHER FINDINGS: . None. IMPRESSION: Minimal stool retention. No bowel obstruction Osseous senescent changes
== END 2017-03-08 13:19 | disposition home or self-care (01) ==
LOC: C.ER 10:03
DX: K59.00 Constipation, unspecified (principal); I10 Essential (primary) hypertension; E78.00 Pure hypercholesterolemia, unspecified

== ENCOUNTER 2017-09-22 12:30 | Emergency (ER) | payer MEDICARE, MEDICAID ==
[2017-09-22 12:30] VITALS: BMI 21.6
[2017-09-22 12:40] VITALS: BP 162/78; PULSE 83; RESP 18; TEMP 98.3; O2SAT 97
--- NOTE | 2017-09-22 13:31 | C.PDOC ---
History Of Present Illness 67 y/o female presents to the ED for evaluation of exacerbation of chronic low back pain. Patient has had 10 prior ED visits for similar complaint. She reports PMHx of severe lumboscacral scoliosis and arthritis. Taking Tylenol #4 daily for her back pain, last dose was taken this morning. Patient notes the pain seems worsened the last 3 days despite taking regular pain medication. Pain is also radiating down both legs, which is typical of her prior back pain episodes. Otherwise no new pain, fever, chills, dysuria, frequency, incontinence , numbness, tingling, or focal weakness. Patient ambulates in to the ED with pain. Time Seen by Provider: 09/22/17 12:38 Chief Complaint (Nursing): Back Pain History Per: Patient History/Exam Limitations: no limitations Onset/Duration Of Symptoms: Days Current Symptoms Are (Timing): Worse Previous Symptoms: Chronic Pain Past Medical History Reviewed: Historical Data, Nursing Documentation, Vital Signs Vital Signs: Last Vital Signs Temp 98.3 F 09/22/17 12:33 Pulse 83 09/22/17 12:33 Resp 18 09/22/17 13:45 BP 162/78 H 09/22/17 12:33 Pulse Ox 97 09/22/17 14:13 - Medical History PMH: Anxiety, Arthritis, Asthma, Back Problems, HTN, Hypercholesterolemia Denies: Chronic Kidney Disease - [facility] Procedures MEASURE OF CARDIAC SAMPL & PRESSURE, L HEART, PERC APPROACH (01/10/17) PLAIN RADIOGRAPHY OF SINGLE COR ART USING OTH CONTRAST (01/10/17) Family History: States: Unknown Family Hx - Social History Hx Tobacco Use: No Hx Alcohol Use: No Hx Substance Use: No - Immunization History Hx Tetanus Toxoid Vaccination: No Hx Influenza Vaccination: No Hx Pneumococcal Vaccination: No Review Of Systems Except As Marked, All Systems Reviewed And Found Negative. Constitutional: Negative for: Fever, Chills Gastrointestinal: Negative for: Abdominal Pain Genitourinary: Negative for: Dysuria, Frequency, Incontinence Musculoskeletal: Positive for: Back Pain, Leg Pain Neurological: Negative for: Weakness, Numbness, Incoordination Physical Exam - Physical Exam Appears: Well, Non-toxic, No Acute Distress Skin: Warm, Dry, No Rash Head: Atraumatic, Normacephalic Eye(s): bilateral: Normal Inspection Oral Mucosa: Moist Neck: Normal ROM Chest: Symmetrical Back: No Vertebral Tenderness, Paraspinal Tenderness (to the bilateral paralumbar and sacroiliac regions) Extremity: Normal ROM (but reports pain on ambulation), No Tenderness, Capillary Refill (< 2 sec), No Deformity, No Swelling, Other (Neurovascularly intact) Pulses: Left Dorsalis Pedis: Normal, Right Dorsalis Pedis: Normal Neurological/Psych: Oriented x3, Normal Speech, Normal Cranial Nerves, Normal Motor, Normal Sensation Gait: Other (Antalgic gait) ED Course And Treatment O2 Sat by Pulse Oximetry: 97 (RA) Pulse Ox Interpretation: Normal Medical Decision Making Medical Decision Making: Impression: acute on chronic lower back pain 10 prior visits for same T#4 x 60/month chronically Plan: * 60mg Toradol IM Final Impression/Dispo: no sig change in quality of lower back pain NSAIDS and ice educated and demonstrated Disposition Doctor Will See Patient In The: Office Counseled Patient/Family Regarding: Studies Performed, Diagnosis - Disposition Referrals: Radha Lang MD [Staff Provider] - Disposition: HOME/ ROUTINE Disposition Time: 13:31 Condition: GOOD Additional Instructions: sigue bolsa de hielo 1/2 hora por hora, nada caliente Ibuprofeno 400-600 mg cada 6 horas martin necessario usa el Tylenol #4 solamente DESPUES de usar hielo y Ibuprofeno Fabiola tratamientos caliente Sigue con aragon medico martin necessario Instructions: Chronic Pain (DC) Forms: [facility] (Greenlandic) Print Language: YAKUT - Clinical Impression Clinical Impression: Chronic lower back pain - Scribe Statement The provider has reviewed the documentation as recorded by the Scribe (Gladis Smallwood) Provider Attestation: All medical record entries made by the Scribe were at my direction and personally dictated by me. I have reviewed the chart and agree that the record accurately reflects my personal performance of the history, physical exam, medical decision making, and the department course for this patient. I have also personally directed, reviewed, and agree with the discharge instructions and disposition.
== END 2017-09-22 13:45 | disposition home or self-care (01) ==
LOC: C.ER 12:30
DX: G89.29 Other chronic pain (principal); M54.5 Low back pain

== ENCOUNTER 2018-02-24 15:59 | Emergency (ER) | payer MEDICARE, MEDICAID ==
[2018-02-24 15:59] VITALS: BMI 21.6
[2018-02-24 16:30] VITALS: TEMP 98.5; O2SAT 98
--- NOTE | 2018-02-24 18:48 | C.PDOC ---
History Of Present Illness 67 year old female with a history of arthritis presents to the emergency department, brought in by daughter status-post a mechanical fall in [place] yesterday. As per daughter, patient fell forward and twisted her left leg, landing on her left knee. No head injury. No chest pain. sob, dizziness prior to fall. Patient now complains of left foot, ankle, and knee pain as well as back pain. Patient is unable to ambulate due to pain. Time Seen by Provider: 02/24/18 16:44 Chief Complaint (Nursing): Lower Extremity Problem/Injury History Per: Patient History/Exam Limitations: no limitations Onset/Duration Of Symptoms: Days (1) Current Symptoms Are (Timing): Still Present - Knee Description Of Injury: Fell Currently Unable To: Other (ambulate) - Ankle/Foot Description Of Injury: Twisted Currently Unable To: Other (ambulate) Past Medical History Reviewed: Historical Data, Nursing Documentation, Vital Signs Vital Signs: Last Vital Signs Temp 98.5 F 02/24/18 16:28 Pulse 63 02/24/18 16:28 Resp 18 02/24/18 16:28 BP 159/63 H 02/24/18 16:28 Pulse Ox 98 02/24/18 16:28 - Medical History PMH: Anxiety, Arthritis, Asthma, Back Problems, HTN, Hypercholesterolemia Denies: Chronic Kidney Disease Surgical History: No Surg Hx - [facility] Procedures MEASURE OF CARDIAC SAMPL & PRESSURE, L HEART, PERC APPROACH (01/10/17) PLAIN RADIOGRAPHY OF SINGLE COR ART USING OTH CONTRAST (01/10/17) Family History: States: No Known Family Hx - Social History Hx Tobacco Use: No Hx Alcohol Use: No Hx Substance Use: No - Immunization History Hx Tetanus Toxoid Vaccination: No Hx Influenza Vaccination: No Hx Pneumococcal Vaccination: No Review Of Systems Constitutional: Negative for: Fever, Chills ENT: Negative for: Nose Pain, Mouth Pain Cardiovascular: Negative for: Chest Pain Gastrointestinal: Negative for: Nausea, Vomiting, Abdominal Pain Musculoskeletal: Positive for: Back Pain, Leg Pain (left), Foot Pain (left). Negative for: Neck Pain Skin: Negative for: Bruising Neurological: Negative for: Weakness, Numbness Physical Exam - Physical Exam Appears: Non-toxic, No Acute Distress Skin: Warm, Dry Head: Atraumatic, Normacephalic Eye(s): bilateral: Normal Inspection, PERRL, EOMI Neck: Normal, Supple Chest: Symmetrical, No Tenderness Cardiovascular: Rhythm Regular, No Murmur Respiratory: Normal Breath Sounds, No Rales, No Rhonchi, No Wheezing Back: Vertebral Tenderness (to the lumbar spine) Extremity: No Normal ROM (painful ROM at the left ankle and left knee), Swelling (mild swelling to the left foot), Other (ecchymosis to the left medial first metatarsal) Pulses: Left Dorsalis Pedis: Normal, Right Dorsalis Pedis: Normal Neurological/Psych: Oriented x3, Normal Speech ED Course And Treatment O2 Sat by Pulse Oximetry: 98 (RA) Pulse Ox Interpretation: Normal Medical Decision Making Medical Decision Making: Plan: Toradol 30mg IM XR Left Ankle XR Left Knee XR Left Foot XR LS Spine AP/LAT 1950 xrays noted to be neg for foot, ankle, knee for acute fx, xray ls spine read by [facility], no acute fx, extensive arthritis. d/c home. pt already taking tyelnol #4. pt avoids nsaids due to stomach irritation from them Disposition Counseled Patient/Family Regarding: Studies Performed, Diagnosis, Need For Followup, Rx Given - Disposition Referrals: Radha Lang MD [Staff Provider] - [facility] [Outside] Podiatry Clinic [Outside] Disposition: HOME/ ROUTINE Disposition Time: 19:55 Condition: STABLE Additional Instructions: Keep left foot elevated; Wear garrick bandage on left foot, Cold compresses over light towel to knee and foot. Follow up with your doctor and podiary in the next few days. Avoid weight bearing on left leg. COntinue taking Tylenol #4 for pain. Instructions: Osteoarthritis (DC), Contusion (DC) Forms: [facility] (Belgian), General Discharge Instructions - Clinical Impression Clinical Impression: Fall from slip, trip, or stumble, Arthritis of low back, Contusion of left foot, initial encounter - PA / TOOL GRINDER OPERATOR EXTERNAL / Resident Statement MD/DO has reviewed & agrees with the documentation as recorded. - Scribe Statement The provider has reviewed the documentation as recorded by the Scribe (Arsh Bhatt) All medical record entries made by the Scribe were at my direction and personally dictated by me. I have reviewed the chart and agree that the record accurately reflects my personal performance of the history, physical exam, medical decision making, and the department course for this patient. I have also personally directed, reviewed, and agree with the discharge instructions and disposition.
[2018-02-24 20:18] VITALS: BP 133/85; PULSE 70; RESP 16
--- NOTE | 2018-02-24 20:25 | RAD ---
Date of service: 02/24/2018 PROCEDURE: Radiographs of the Lumbar Spine. HISTORY: fall pain COMPARISON: Abdominal flat plate radiographs performed 03/08/17 FINDINGS: Scoliosis. Multilevel degenerative changes including intervertebral disc space narrowing and osteophyte formation. T12 rudimentary ribs. No acute displaced fracture identified. IMPRESSION: Scoliosis. Extensive multilevel degenerative changes. No acute displaced fracture identified.
--- NOTE | 2018-02-24 20:31 | RAD ---
PROCEDURE: Left foot radiographs Left ankle radiographs HISTORY: fall, bruise to 1st metatarsal, pain COMPARISON: None available. FINDINGS: Limited study due to suboptimal positioning. Mass possible images obtained due to patient condition. BONES: Osseous demineralization limits evaluation for acute fracture lines. Degenerative changes. No acute displaced fracture. JOINTS: Joint space narrowing including subtalar joint. No dislocation. SOFT TISSUES: Vascular calcifications. No evidence of radiopaque foreign body. OTHER FINDINGS: None. IMPRESSION: Limited study. Osseous demineralization. Degenerative changes. No acute displaced fracture identified. If high clinical index of suspicion for occult fracture persists, cross-sectional imaging may be considered.
--- NOTE | 2018-02-24 20:33 | RAD ---
PROCEDURE: Left Knee Radiographs. HISTORY: fall COMPARISON: None available. FINDINGS: BONES: Demineralization limits evaluation for acute fracture lines. No acute displaced fracture. Degenerative changes including tenting of the intercondylar notch. JOINTS: No dislocation. Medial compartment joint space narrowing. JOINT EFFUSION: No significant joint effusion. OTHER FINDINGS: Dense vascular calcifications. IMPRESSION: Osseous demineralization. Degenerative changes. No acute displaced fracture identified.
== END 2018-02-24 20:18 | disposition home or self-care (01) ==
LOC: C.ER 15:59
DX: S90.32XA Contusion of left foot, initial encounter (principal); W01.0XXA Fall on same level from slipping, tripping and stumbling without subsequent striking against object, initial encounter; M47.816 Spondylosis without myelopathy or radiculopathy, lumbar region
CPT/HCPCS: 72100; 73560; 73610; 73630; 96372; 99284; J1885

== ENCOUNTER 2018-06-05 11:18 | Day surgery (SDC) | payer MEDICARE, MEDICAID ==
[2018-06-05 11:38] VITALS: BMI 19.9
[2018-06-05] MEDS ORDERED: Propofol 10 mg/ml Inj (20 ML) ONE (14:37)
[2018-06-05] MEDS ORDERED: Lidocaine Hydrochloride 10 ML INJ ONE (14:52)
[2018-06-05] MEDS ORDERED: Lidocaine 2% Jelly (Uro-Jet) ONE (14:52)
[2018-06-05] MEDS ORDERED: cefTRIAXone 1 gm 1 GM/100 ML BAG IVPB ONE (14:52)
[2018-06-05] MEDS ORDERED: Iohexol 240 (50 ml) ONE (15:01)
[2018-06-05] MEDS ORDERED: Lactated Ringer's 1,000 ML IV SCH (15:30)
[2018-06-05 17:16] VITALS: RESP 18; TEMP 97.6
[2018-06-05 17:41] VITALS: BP 120/85; PULSE 72; O2SAT 97
--- NOTE | 2018-06-06 06:40 | OP ---
PROCEDURE DATE: 06/05/2018 UROLOGY OPERATIVE NOTE PREOPERATIVE DIAGNOSES: Urinary retention, voiding dysfunction, decreased flow of stream, abdominal pressure and discomfort. POSTOPERATIVE DIAGNOSES: Urinary retention, voiding dysfunction, decreased flow of stream, abdominal pressure and discomfort. PROCEDURES: Insertion of a cystostomy tube, punch cystotomy tube and a cystogram. SURGEON: Salazar Perea MD COMPLICATIONS: None. BLOOD LOSS: Less than 10 mL. INDICATION: See history and physical but in brief, this is a very pleasant just 68-year-old lady. She is recovering from neck, spinal surgery. She is developing a little bit of neurogenic bladder, urinary retention, voiding dysfunction. We tried voiding trial. We tried Flomax. We tried various options, medical therapy. We decided to do best options including CIC, but at this point, the patient is interested to have her bladder emptied and not being getting the Rey catheter back and forth, so we are doing a punch cystotomy and we explained there may be completely temporary nature of this, but we will see in this way we can monitor the patient voiding trials more easily. PROCEDURE AND FINDINGS: 1. The procedure goes without complication. 2. We were able to insert a cystotomy tube well at about 2-3 fingerbreadths above the pubic bone. There is no other abnormality. PROCEDURE IN DETAIL: Once we obtained informed consent from the patient and the daughter, the mother has complete control. She signed a consent form. We discussed options with the patient and the daughter in the office again here today with similar results. Now, we prepared the patient in a supine position. We kept the patient supine in the entire time. We the patient in the operating room in supine position. We made skin markings about 2-3 fingerbreadths above. She has no hernias. She has no other abnormalities or concerns. A midline skin marking was made about 2-3 fingerbreadths above the pubic bone. We now distended the bladder by using irrigation. Once the bladder was getting distended, the patient was given anesthesia. We tried local anesthesia. We used a spinal finder needle. I measured the length from the abdominal wall to the bladder. We clamped all. We then measured that on the suprapubic catheter which we prepared. We now inserted. We felt a pop right through the bladder. We removed the needle and inflated the balloon slightly further. We did a cystogram. We confirmed our positioning. Overall, I put a little contrast in the balloon just to confirm our positioning. The patient tolerated without complication. Dry sterile dressing secured it in place with suture material, 0 silk sutures, dressing sponge. The patient tolerated the procedure well without complications. Salazar Perea MD
--- NOTE | 2018-06-06 08:10 | HP ---
REASON FOR ADMISSION: To insert a cystostomy tube. HISTORY OF PRESENT ILLNESS: Ms. Mora is a very pleasant lady who is just 68-year-old. She is recovering now from neck and spine surgery, and she is developing a neurogenic bladder. She was unable to void, but she has a sensation to void, and she has been in retention on at least 3 to 4 different occasions with large residuals, and stented up. We discussed options with the daughter. Previous cystoscopy did not show any major abnormalities. We did a limited urodynamics. See the office note what I did it. We filled the bladder. She has normal sensation, but she is not really able to walk, though we had to limit what we were able to do in terms of getting a fresh flow study. Again, see the notes in the chart. These were done on Tuesday, but what I suspect is that the patient is just recovering from her surgery, and hopefully, this is just a temporary measure. 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 PAST MEDICAL AND SURGICAL HISTORY: As listed and as mentioned above. The patient reports that prior to any of this, the patient had good control of her urine without wetting herself, maybe waking up once or twice at night. No major problems. Apparently, she is optimistic that this will return. The underlying medical issues were all outlined in the chart. Nothing out significantly urology coe. MEDICATIONS: See the chart including that she got. REVIEW OF SYSTEMS: As listed above. Noncontributory. No weight loss, chest pain, shortness of breath, or like. She does have some abdominal discomfort, and she does have some baseline constipation. ALLERGIES: SEE THE CHART. PHYSICAL EXAMINATION: GENERAL: No apparent distress. VITAL SIGNS: Within normal limits. LUNGS: Clear. ABDOMEN: Really soft. Rey catheter is in place as well. Not grossly distended. No hernias appreciated. No other abnormalities detected. NEUROLOGIC: As listed elsewhere. LABORATORY DATA: See chart. DIAGNOSES: Urinary retention. Voiding dysfunction. Possible neurogenic bladder. ASSESSMENT AND PLAN: In summary, a very pleasant lady. We did a cystoscope and did not find any abnormality. We did a limited urodynamics. The patient seemed to have proper sensation but I am not able to measure a pressure flow study given her limits, so we discussed options. At this point, she is very upset that the catheter keeps going back and forth, but she is not really enthusiastic that the catheter remained in the urethra. So, I discussed options with the patient, with her daughter. It is my recommendation that we consider a relatively simple procedure in a cystoscopy tube, this will allow voiding trial. We go through the bladder it also allows her freedom to get around better. Daughter thought that she is getting much better with the physical therapy. I think this will help her a lot. We can even put a plug in the suprapubic catheter and now it is connected to a leg bag. So, the plan for today is as follows, 1. Antibiotics prophylaxis. 2. Insertion of cystoscopy tube. 3. Further plans will follow depending on what we find clinically. Risks and benefits discussed at length. All the details have been discussed. ADDENDUM: patient is going back to the retirement where we are going to manage the catheter at the end. Salazar Perea MD
--- NOTE | 2018-06-06 09:26 | RAD ---
PROCEDURE: HISTORY: Retention COMPARISON: None TECHNIQUE: Total fluoroscopic time utilized during the procedure: 15.0 seconds ; 2.39 mGy FINDINGS: Submitted images from the current procedure: 5 Please refer to the physician's notes performing the procedure. IMPRESSION: Less than 1 hour fluoroscopic time utilized during performance of the procedure
== END 2018-06-05 17:38 | disposition home or self-care (01) ==
LOC: C.SDS 11:18
PROVIDERS: ATTEND Urology
DX: N31.9 Neuromuscular dysfunction of bladder, unspecified (principal); R33.9 Retention of urine, unspecified
CPT/HCPCS: 51040; 51600; C2627; J0696; J2001; J2270; J2704; J3010; Q9966